=== PATIENT | male | born 1995 | race Caucasian/White ===

== ENCOUNTER 2022-06-03 14:46 | Emergency (ER) | payer OTHER ==
[~2022-06-03] VITALS: Ht 170.2 cm; Wt 72.7 kg
[2022-06-03 16:17] VITALS: TEMP 97.8
[2022-06-03] MEDS ORDERED: CIPRO 500MG TA500 MG PO (20:08)
[2022-06-03 20:23] VITALS: BP 132/87; PULSE 83
== END 2022-06-03 20:24 | disposition home or self-care (01) ==
LOC: COL.ER 14:46
DX: S41.111A Laceration without foreign body of right upper arm, initial encounter (principal); Z88.0 Allergy status to penicillin; Z28.310 Unvaccinated for COVID-19; W26.8XXA Contact with other sharp object(s), not elsewhere classified, initial encounter; W18.30XA Fall on same level, unspecified, initial encounter; Y92.59 Other trade areas as the place of occurrence of the external cause; Y99.0 Civilian activity done for income or pay